=== PATIENT | female | born 1980 | race Hispanic/Latino ===

== ENCOUNTER 2016-08-12 08:42 | Emergency (ER) | payer SELFPAY ==
[2016-08-12 08:43] VITALS: BMI 22.6
[2016-08-12 08:57] VITALS: TEMP 98.1
[2016-08-12] MEDS ORDERED: Albuterol-Ipratrop 3 mg / 0.5 (3 ml) UD IH STA ×2 (09:20→11:07)
--- NOTE | 2016-08-12 10:32 | ED PDOC ---
Arrival/HPI - General Historian: Patient - General Chief Complaint: Cough, Cold, Congestion Time Seen by Provider: 08/12/16 09:15 - History of Present Illness Narrative History of Present Illness (Text): 08/12/16 10:28 35-year-old female presents today with cough and nasal congestion and subjective fevers at home for the past few days. Patient states initially she just started with nasal congestion and a cough. Patient states she was taking Mucinex with relief. Patient complaining of subjective fevers at home but states she has not taken her temperature. Patient states since this morning she is having more difficulty with breathing. Patient states she quit smoking 2 weeks ago. She denies calf pain. Denies any recent travel. Patient denies any sick contacts. Patient still complaining of nasal congestion. Patient states occasionally she has a productive cough with yellow/clear mucus. Complaining of congestion to the nose. Denies abdominal pain. No nausea or vomiting. No other complaints (Azoia,Ailyn T) Past Medical History - Provider Review Nursing Documentation Reviewed: Yes - Travel History Have you recently traveled outside [place] w/in the past 3 mons?: No - Infectious Disease Hx of Infectious Diseases: None - Reproductive Menopause: No - Psychiatric Hx Depression: No Hx Emotional Abuse: No Hx Physical Abuse: No Hx Substance Use: No - Surgical History Hx Section: Yes - Anesthesia Hx Anesthesia: Yes Hx Anesthesia Reactions: No - Suicidal Assessment Feels Threatened In Home Enviroment: No Family/Social History - Physician Review Nursing Documentation Reviewed: Yes Family/Social History: Unknown Family HX Smoking Status: Former Smoker Hx Alcohol Use: No Hx Substance Use: No Hx Substance Use Treatment: No Allergies/Home Meds Allergies/Adverse Reactions: Allergies seasonal Allergy (Uncoded 08/12/16 08:58) CONGESTION Review of Systems - Review of Systems Constitutional: Fevers ENT: Sore Throat, Sinus Congestion Respiratory: SOB, Cough, Sputum (yellow/clear mucus), Wheezing Cardiovascular: absent: Chest Pain, Syncope Gastrointestinal: absent: Abdominal Pain, Nausea, Vomiting Genitourinary Female: absent: Dysuria Musculoskeletal: absent: Arthralgias Skin: absent: Rash, Pruritis Neurological: absent: Headache, Dizziness Psychiatric: absent: Anxiety, Depression Physical Exam Vital Signs Reviewed: Yes Temperature: Afebrile Blood Pressure: Normal Pulse: Tachycardic Respiratory Rate: Normal Appearance: Positive for: Well-Appearing, Non-Toxic, Comfortable Pain Distress: None Mental Status: Positive for: Alert and Oriented X 3 - Systems Exam Head: Present: Atraumatic Pupils: Present: PERRL Extroacular Muscles: Present: EOMI Conjunctiva: Present: Normal Ears: Present: Normal, NORMAL TM. No: Erythema Mouth: Present: Moist Mucous Membranes, Normal Lips, Normal Tounge, Normal Teeth. No: Drooling, Trismus Pharnyx: Present: Normal. No: ERYTHEMA, EXUDATE, TONSILS ENLARGED, Peritonsilar Swelling, Uvular Deviation, Muffled/Hoarse Voice Nose (External): Present: Atraumatic Nose (Internal): Present: Engorged, Clear Mucous. No: Septal Hematoma Neck: Present: Normal Range of Motion, Lymphadenopathy, Trachea Midline. No: Meningeal Signs Respiratory/Chest: Present: Good Air Exchange, Wheezes, Rhonchi. No: Clear to Auscultation, Respiratory Distress, Accessory Muscle Use, Decreased Breath Sounds, Retracting, Tachypneic Cardiovascular: Present: Regular Rate and Rhythm Neurological: Present: GCS=15 Skin: Present: Warm, Dry, Normal Color. No: Rashes Psychiatric: Present: Alert, Oriented x 3 Vital Signs Temp Pulse Resp BP Pulse Ox 08/12/16 10:49 93 H 18 129/66 97 08/12/16 08:54 98.1 F 105 H 20 144/88 100 Medical Decision Making ED Course and Treatment: I was available for consultation during PA evaluation. The chart was reviewed by me, and I agree with disposition. The documented history was done by the physician architecture manager. The documented physical exam was done by the physician architecture manager. The documented procedures were done by the physician architecture manager. (Connor Burt) 08/12/16 10:33 Patient is nontoxic well-appearing in no distress. duo neb x 2 cxr; no infiltrate or effusion pt reassessment; lungs cta bilaterally; pt feeling much better; vitals stable. Zithromax po I advised follow up with primary care physician within the next 2 days. I advised increase fluids and return if symptoms worsen persist or if new symptoms develop. IMPRESSION; bronchitis Motrin one tablet every 6 hours as needed for pain Zithromax one tablet once daily x4 days FLonase; 2 sprays each nostril once daily. Albuterol; 2 puffs every 4-6 hours as needed for cough. Increase fluids Followup with primary care physician the next 2 days Return if symptoms worsen persist or if new symptoms develop (Ailyn Gilbert) - RAD Interpretation Radiology Orders: 08/12/16 09:20 CHEST TWO VIEWS (PA/LAT) [RAD] Stat - Medication Orders Current Medication Orders: Discontinued Medications Albuterol/Ipratropium (Duoneb 3 Mg/0.5 Mg (3 Ml) Ud) 3 ml IH STAT STA Stop: 08/12/16 09:21 Last Admin: 08/12/16 09:39 Dose: 3 ML Albuterol/Ipratropium (Duoneb 3 Mg/0.5 Mg (3 Ml) Ud) 3 ml IH STAT STA Stop: 08/12/16 11:08 Last Admin: 08/12/16 11:31 Dose: 3 ML Azithromycin (Zithromax) 500 mg PO STAT STA PRN Reason: Protocol Stop: 08/12/16 11:08 Last Admin: 08/12/16 11:31 Dose: 500 MG Disposition/Present on Arrival - Present on Arrival Any Indicators Present on Arrival: No History of DVT/PE: No History of Uncontrolled Diabetes: No Urinary Catheter: No History of Decub. Ulcer: No History Surgical Site Infection Following: None - Disposition Have Diagnosis and Disposition been Completed?: Yes Disposition Time: 12:11 Patient Plan: Discharge - Disposition Diagnosis: Bronchitis Disposition: HOME/ ROUTINE Condition: GOOD Discharge Instructions (ExitCare): Acute Bronchitis (ED) Additional Instructions: Motrin one tablet every 6 hours as needed for pain Zithromax one tablet once daily x4 days FLonase; 2 sprays each nostril once daily. Albuterol; 2 puffs every 4-6 hours as needed for cough. Increase fluids Followup with primary care physician the next 2 days Return if symptoms worsen persist or if new symptoms develop Prescriptions: Albuterol HFA [Ventolin HFA 90 mcg/actuation (8 g)] 2 puff IH [id number] PRN #1 inhaler PRN Reason: Cough Albuterol 0.083% [Albuterol 0.083% Inhal Heather (2.5 mg/3 ml) UD] 1 vial IH TID PRN #1 packet PRN Reason: Cough Nebulizer [Compact Compressor Nebulizer] 1 dev XX PRN PRN #1 dev PRN Reason: Cough Fluticasone Nasal [Flonase] 2 spr NS DAILY #1 spr Azithromycin [Zithromax] 250 mg PO DAILY #4 tab predniSONE [predniSONE Tab] 3 tab PO DAILY #12 tab Referrals: Eron Sherman MD [Staff Provider] - Follow up with primary [facility] [place] [Outside] - Follow up with primary Forms: WORK NOTE
[2016-08-12 10:49] VITALS: RESP 18
--- NOTE | 2016-08-12 10:56 | RAD ---
HISTORY: cough/congestion COMPARISON: No prior. TECHNIQUE: Chest PA and lateral FINDINGS: LUNGS: No active pulmonary disease. There is minimal peribronchial thickening PLEURA: No significant pleural effusion identified. No pneumothorax apparent. CARDIOVASCULAR: Normal. OSSEOUS STRUCTURES: No significant abnormalities. VISUALIZED UPPER ABDOMEN: Normal. OTHER FINDINGS: None. IMPRESSION: No active disease.
[2016-08-12 12:38] VITALS: BP 120/78; PULSE 88; O2SAT 98
== END 2016-08-12 12:38 | disposition home or self-care (01) ==
LOC: ED 08:42
DX: J40 Bronchitis, not specified as acute or chronic (principal)